=== PATIENT | female | born 1965 | race American Indian/Alaskan Native ===

== ENCOUNTER 2018-03-18 19:06 | Emergency (ER) | payer MEDICARE ==
[2018-03-18] MEDS ORDERED: MOTRIN PO ONE (19:49)
--- NOTE | 2018-03-18 21:05 | Emergency Department Report ---
Burn HPI - History Stated Complaint: BURN LEFT ARM Chief Complaint: Burn/Smoke Inhalation Time Seen by Provider: 03/18/18 20:58 Duration of Burn: Today Burn Location: Arms Burn Etiology: Accidental Pain: Mild Tetanus Status: Up to Date Symptoms:: Yes Able to Tolerate Fluids, No Blistering, No Malaise, No Myalgias, No Fever, No Vomiting Other History: This is a 52-year-old female nontoxic well in appearance with no signs of distress presents to ER complaining of a burn to left arm that occurred today about 5 PM. 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 She denies any blistering, abrasions, fever, chills, nausea, vomiting, chest pain, shortness of breath, headache or stiff neck. Patient stated he is able to tolerate fluids. Allergies includes penicillin with past medical history of arthritis, asthma, diabetes and hypertension. - Home Meds and Allergies Home Medications: Home Medications Medication Instructions Recorded Confirmed Last Taken Aspirin [Aspirin BABY CHEW TAB] 81 mg PO QDAY 12/15/14 12/15/14 12/14/14 Cyanocobalamin (Vitamin B-12) 500 mcg PO DAILY 12/15/14 12/15/14 12/14/14 [Vitamin B-12] Cyclobenzaprine [Flexeril 10mg] 10 mg PO TID PRN 12/15/14 12/15/14 12/14/14 Esomeprazole Magnesium [NexIUM] 20 mg PO QDAY 12/15/14 12/15/14 12/14/14 Gabapentin [Neurontin] 300 mg PO Q8H 12/15/14 12/15/14 12/14/14 HYDROcodone/APAP 5-325 [Leander 1 each PO Q6HR PRN 12/15/14 12/15/14 12/14/14 5/325] Losartan [Cozaar] 100 mg PO QDAY 12/15/14 12/15/14 12/14/14 Metformin HCl [Glucophage] 1,000 mg PO BID 12/15/14 12/15/14 12/14/14 Metoclopramide [Reglan] 10 mg PO Q6H 12/15/14 12/15/14 12/14/14 Metoprolol [Lopressor TAB] 50 mg PO DAILY 12/15/14 12/15/14 12/14/14 amLODIPine [Norvasc] 5 mg PO DAILY 12/15/14 12/15/14 12/14/14 hydroCHLOROthiazide [Hctz] 12.5 mg PO QDAY 12/15/14 12/15/14 12/14/14 levETIRAcetam [Keppra] 500 mg PO BID 12/15/14 12/15/14 12/14/14 medroxyPROGESTERone ACETATE 10 mg PO QDAY 12/15/14 12/15/14 12/14/14 [Provera] traZODone [Desyrel] 50 mg PO QHS 12/15/14 12/15/14 12/14/14 Previous Rx's Medication Instructions Recorded Last Taken Type Docusate Sodium [Colace] 100 mg PO BID #60 capsule 12/15/14 Unknown Rx Ferrous Sulfate [Feosol 325 MG tab] 325 mg PO TID #90 tablet 12/15/14 Unknown Rx HYDROcodone/APAP 5-325 [Leander 1 each PO Q6HR PRN #10 tablet 12/15/14 Unknown Rx 5/325] Sulfamethoxazole/Trimethoprim 1 each PO BID #14 tablet 12/15/14 Unknown Rx [Bactrim Ds] Acetaminophen/Codeine [Tylenol 1 tab PO Q6H PRN #12 tab 03/18/18 Unknown Rx /Codeine # 3 tab] Ibuprofen [Motrin] 600 mg PO Q8H PRN #30 tablet 03/18/18 Unknown Rx Silver Sulfadiazine [Silvadene] 50 gm TP BID #1 cream..g. 03/18/18 Unknown Rx Allergies/Adverse Reactions: Allergies Allergy/AdvReac Type Severity Reaction Status Date / Time penicillin Allergy Rash Verified 12/15/14 11:53 ED Review of Systems ROS: Stated complaint: BURN LEFT ARM Other details as noted in HPI Constitutional: denies: chills, fever Eyes: denies: eye pain, eye discharge, vision change ENT: denies: ear pain, throat pain Respiratory: denies: cough, shortness of breath, wheezing Cardiovascular: denies: chest pain, palpitations Endocrine: no symptoms reported Gastrointestinal: denies: abdominal pain, nausea, diarrhea Genitourinary: denies: urgency, dysuria, discharge Musculoskeletal: denies: back pain, joint swelling, arthralgia Skin: denies: rash, lesions Neurological: denies: headache, weakness, paresthesias Psychiatric: denies: anxiety, depression Hematological/Lymphatic: denies: easy bleeding, easy bruising ED Past Medical Hx - Past Medical History Hx Hypertension: Yes Hx Diabetes: Yes Hx Arthritis: Yes Hx Seizures: Yes Hx Asthma: Yes Additional medical history: Morbid Obesity. - Surgical History Additional Surgical History: Ectopic , thyroid surgery - Social History Smoking Status: Never Smoker Substance Use Type: None - Medications Home Medications: Home Medications Medication Instructions Recorded Confirmed Last Taken Type Aspirin [Aspirin BABY CHEW TAB] 81 mg PO QDAY 12/15/14 12/15/14 12/14/14 History Cyanocobalamin (Vitamin B-12) 500 mcg PO DAILY 12/15/14 12/15/14 12/14/14 History [Vitamin B-12] Cyclobenzaprine [Flexeril 10mg] 10 mg PO TID PRN 12/15/14 12/15/14 12/14/14 History Docusate Sodium [Colace] 100 mg PO BID #60 capsule 12/15/14 Unknown Rx Esomeprazole Magnesium [NexIUM] 20 mg PO QDAY 12/15/14 12/15/14 12/14/14 History Ferrous Sulfate [Feosol 325 MG tab] 325 mg PO TID #90 tablet 12/15/14 Unknown Rx Gabapentin [Neurontin] 300 mg PO Q8H 12/15/14 12/15/14 12/14/14 History HYDROcodone/APAP 5-325 [[place]ander 1 each PO Q6HR PRN 12/15/14 12/15/14 12/14/14 History 5/325] HYDROcodone/APAP 5-325 [[place] 1 each PO Q6HR PRN #10 tablet 12/15/14 Unknown Rx 5/325] Losartan [Cozaar] 100 mg PO QDAY 12/15/14 12/15/14 12/14/14 History Metformin HCl [Glucophage] 1,000 mg PO BID 12/15/14 12/15/14 12/14/14 History Metoclopramide [Reglan] 10 mg PO Q6H 12/15/14 12/15/14 12/14/14 History Metoprolol [Lopressor TAB] 50 mg PO DAILY 12/15/14 12/15/14 12/14/14 History Sulfamethoxazole/Trimethoprim 1 each PO BID #14 tablet 12/15/14 Unknown Rx [Bactrim Ds] amLODIPine [Norvasc] 5 mg PO DAILY 12/15/14 12/15/14 12/14/14 History hydroCHLOROthiazide [Hctz] 12.5 mg PO QDAY 12/15/14 12/15/14 12/14/14 History levETIRAcetam [Keppra] 500 mg PO BID 12/15/14 12/15/14 12/14/14 History medroxyPROGESTERone ACETATE 10 mg PO QDAY 12/15/14 12/15/14 12/14/14 History [Provera] traZODone [Desyrel] 50 mg PO QHS 12/15/14 12/15/14 12/14/14 History Acetaminophen/Codeine [Tylenol 1 tab PO Q6H PRN #12 tab 03/18/18 Unknown Rx /Codeine # 3 tab] Ibuprofen [Motrin] 600 mg PO Q8H PRN #30 tablet 03/18/18 Unknown Rx Silver Sulfadiazine [Silvadene] 50 gm TP BID #1 cream..g. 03/18/18 Unknown Rx Exam - Exam General: Vital signs noted. No distress. Alert and acting appropriately. GENERAL: The patient is a well-developed, well-nourished in no apparent distress. Patient is alert and acting appropriately for age. Alert and oriented 3, no apparent distress, normal gait, atraumatic. HEENT: Head is normocephalic and atraumatic. PERRL, Extraocular muscles are intact. Pupils are equal, round, and reactive to light and accommodation. Nares appeared normal. Mouth is well hydrated and without lesions. Mucous membranes are moist. Posterior pharynx clear of any exudate or lesions. Mouth is well hydrated and without lesions. Tonsils not erythematous or swollen. Uvula midline. Tongue elevated. Mucous members are moist. Posterior pharynx clear, no exudate or lesions. Patent airways. NECK: Supple. No carotid bruits. No lymphadenopathy or thyromegaly.nontender. No meningitic signs are noted. LUNGS: Clear to auscultation. Non labor breathing. No intercostal retractions. Symmetrical with respiration, no wheezing, no rales, or crackles. HEART: Regular rate and rhythm without murmur, rubs or gallops. No reproducible. S1, S2 present, regular rate and rhythm without murmur, no rubs, no gallops. ABDOMEN: Soft, nontender, and nondistended. Positive bowel sounds. No hepatosplenomegaly was noted. No guarding or rebound tenderness, negative epigastric bruit. Negative psoas sign, negative foley sign, negative McBurneys sign EXTREMITIES: Without any cyanosis, clubbing, rash, lesions or edema. Peripheral pulses intact. Capillary refill less than 2 seconds. Full range of motion bilaterally. NEUROLOGIC: Cranial nerves II through XII are grossly intact. Alert and oriented x 3. Normal gait. Symmetrical strength and sensation. Reflexes 2+ throughout. Cerebellar testing normal. GCS score of 15. PSYCHIATRIC: Normal affect with no suicidal or homicidal ideations. Skin: Left forearm slight erythema with no blistering or open wound. No tenderness to touch. HEENT: Yes Moist Mucous Membranes, No Conjuctival Injection, No Corneal Edema Full Body Front + Back: 1 - Redness Skin: Yes Erythroderma, No Blistering, No Tenderness, No Edema Exam: Yes Normal Heart Sounds, No Respiratory Distress, No Sensory Deficits, No Musculoskeletal Pain ED Course Vital Signs 03/18/18 03/18/18 03/18/18 19:24 19:39 19:49 Temperature 98.7 F 98.7 F Pulse Rate 83 83 77 Respiratory 18 18 18 Rate Blood Pressure 203/90 203/90 Blood Pressure 170/81 [Left] O2 Sat by Pulse 99 98 99 Oximetry - Reevaluation(s) Reevaluation #1: 03/18/18 21:03 Patient is speaking in full sentences with no signs of distress noted. ED Medical Decision Making - Medical Decision Making This is a 52-year-old female that presents with superficial burn. Patient is stable and was examined by me. Patient is up-to-date with tetanus. Patient is currently holding ice to the extremity. There is no blistering noted. I will discharge patient with Tylenol with codeine, Motrin with Silvadene. Patient was referred to Follow-up with a primary care doctor/[facility] unit in 2 days or if symptoms worsen and continue return to emergency room as soon as possible. At time of discharge, the patient does not seem toxic or ill in appearance. No acute signs of distress noted. Patient agrees to discharge treatment plan of care. No further questions noted by the patient. Critical care attestation.: If time is entered above; I have spent that time in minutes in the direct care of this critically ill patient, excluding procedure time. ED Disposition Clinical Impression: Superficial burn of left forearm Qualifiers: Encounter type: initial encounter Qualified Code(s): T22.112A - Burn of first degree of left forearm, initial encounter Disposition: - TO HOME OR SELFCARE Is pt being admited?: No Does the pt Need Aspirin: No Condition: Stable Instructions: Superficial Burn (ED), Acetaminophen/Codeine (By mouth) Additional Instructions: Follow-up with a primary care doctor/[facility] unit in 2 days or if symptoms worsen and continue return to emergency room as soon as possible. Do not operate any machinery while taking Tylenol with codeine as this may cause drowsiness. Prescriptions: Acetaminophen/Codeine [Tylenol /Codeine # 3 tab] 1 tab PO Q6H PRN #12 tab PRN Reason: Pain , Severe (7-10) Ibuprofen [Motrin] 600 mg PO Q8H PRN #30 tablet PRN Reason: Pain Silver Sulfadiazine [Silvadene] 50 gm TP BID #1 cream..g. Referrals: PRIMARY CAREMD [Referring] - 3-5 Days ADDI NÚÑEZ MD [Staff Physician] - 3-5 Days [facility] [Outside] - 3-5 Days [facility] [Outside] - 3-5 Days Forms: Work/School Release Form(ED)
[2018-03-18 21:23] VITALS: BP 148/99
== END 2018-03-18 21:20 | disposition home or self-care (01) ==
LOC: ED 19:06
DX: T22.112A Burn of first degree of left forearm, initial encounter (principal); I10 Essential (primary) hypertension; E11.9 Type 2 diabetes mellitus without complications; M19.90 Unspecified osteoarthritis, unspecified site; J45.909 Unspecified asthma, uncomplicated; E66.01 Morbid (severe) obesity due to excess calories; Z88.0 Allergy status to penicillin; Z79.82 Long term (current) use of aspirin; X10.0XXA Contact with hot drinks, initial encounter; Y93.89 Activity, other specified; Y92.511 Restaurant or cafe as the place of occurrence of the external cause; Y99.8 Other external cause status
CPT/HCPCS: 99282